=== PATIENT | male | born 1985 | race Two or more races ===

== ENCOUNTER 2019-11-25 15:34 | Emergency (ER) | payer BC, OTHER, SELFPAY ==
[~2019-11-25] VITALS: Ht 165.1 cm; Wt 104.3 kg
[2019-11-25 15:38] VITALS: BP 118/84
== END 2019-11-25 17:29 | disposition home or self-care (01) ==
LOC: ER 15:34
DX: U07.1 COVID-19 (principal); R19.7 Diarrhea, unspecified
CPT/HCPCS: 71045; 87635